=== PATIENT | male | born 1970 | race Caucasian/White ===

== ENCOUNTER 2018-06-14 13:26 | Emergency (ER) | payer OTHER ==
[~2018-06-14] VITALS: Ht 175.3 cm; Wt 88.9 kg
--- NOTE | 2018-06-14 13:26 | NUR ---
PT BIB FRIEND C/O CHOKING SENSATION S/P EATING LUNCH X 15, PT IS AAOX4, NOT IN RESPIRATORY DISTRESS, NOTED THROAT TIGHTNESS, KEPT RESTED AND COMFORTABLE. WILL CONTINUE TO MONITOR.
--- NOTE | 2018-06-14 13:40 | NUR ---
PT SEEN AND EXAMINED BY MS. CAMILA BROCK.
[2018-06-14] MEDS ORDERED: ONDANSETRON HCL/PF 4 MG/2 ML VIAL ONE (13:46)
[2018-06-14] MEDS: ONDANSETRON HCL/PF 4 MG/2 ML VIAL IM ONE (13:51)
--- NOTE | 2018-06-14 13:51 | NUR ---
PT IS WHEELED TO CT SCAN.
[2018-06-14] MEDS ORDERED: GLUCAGON,HUMAN RECOMBINANT 1 MG/VIAL VIAL ONE (15:11)
[2018-06-14] MEDS ORDERED: WATER FOR INJECTION,STERILE 10 ML ONE (15:15)
[2018-06-14] MEDS: GLUCAGON,HUMAN RECOMBINANT 1 MG/VIAL VIAL IV ONE (15:22)
--- NOTE | 2018-06-14 15:35 | NUR ---
CALLED GI SUPERVISOR [facility] [facility] DR MEDINA WAS PAGED.
--- NOTE | 2018-06-14 15:43 | NUR ---
PATIENT FEELS WORSE, VOMITING MORE, CAMILA JACKMAN
[2018-06-14 16:03] LABS: BASOPHILS % (AUTO) 0.9 % (0.0-2.0); EOSINOPHILS % (AUTO) 2.1 % (0.0-6.0); HEMATOCRIT 44 % (39-51); HEMOGLOBIN 14.8 g/dL (13.5-17.5); LYMPHOCYTES # (AUTO) 1.2 /CMM (0.8-4.8); LYMPHOCYTES % (AUTO) 28.1 % (20.0-44.0); MEAN CORPUSCULAR HGB CONC 34 g/dl (31.0-36.0); MEAN CORPUSCULAR VOLUME 92 fL (80-96); MONOCYTES # (AUTO) 0.3 /CMM (0.1-1.30); MONOCYTES % (AUTO) 7.5 % (2.0-12.0); NEUTROPHILS # (AUTO) 2.7 /CMM (1.8-8.9); NEUTROPHILS % (AUTO) 61.4 % (43.0-81.0); PLATELET COUNT (AUTO) 256 /CMM (150-450); RED BLOOD CELL COUNT(AUTO) 4.83 MIL/uL (4.5-6.0); WHITE BLOOD COUNT (AUTO) 4.4 K/uL (4.3-11.0)
[2018-06-14 16:51] LABS: CALCIUM, SERUM 9.2 mg/dL (8.5-10.1); CREATININE 1.2 mg/dL (0.6-1.3); POTASSIUM 3.9 mmol/L (3.5-5.1)
[2018-06-14 16:57] LABS: ALBUMIN 4.3 g/dL (3.4-5.0); BILIRUBIN,TOTAL 0.4 mg/dL (0.2-1.0); TOTAL PROTEIN, SERUM 7.8 g/dL (6.4-8.2)
--- NOTE | 2018-06-14 17:26 | NUR ---
CALLED GI [facility]IDE DR MEDINA WAS PAGED.
[2018-06-14 18:44] VITALS: BP 128/72
--- NOTE | 2018-06-14 18:44 | NUR ---
IV removed. Catheter intact and site benign. Pressure and 4x4 applied to site. No bleeding noted. Patient discharged to home in stable condition. Written and verbal after care instructions given. Patient verbalizes understanding of instruction.
== END 2018-06-14 18:47 | disposition home or self-care (01) ==
LOC: ER 13:28
DX: T18.120A Food in esophagus causing compression of trachea, initial encounter (principal); Y92.89 Other specified places as the place of occurrence of the external cause
CPT/HCPCS: 36415; 70490; 80053; 85025; 96372; 96374; 99284; A4606; J1610; J2405